=== PATIENT | female | born 1940 | race Two or more races ===

== ENCOUNTER 2017-09-14 06:26 | Day surgery (SDC) | payer MEDICARE, OTHER ==
[2017-09-14] MEDS ORDERED: PROPOFOL 200 MG/20 ML BOTTLE IV ONE (06:27)
[2017-09-14] MEDS ORDERED: ONDANSETRON 4 MG/2 ML VIAL IV ONE (06:27)
[2017-09-14] MEDS ORDERED: CEFAZOLIN 1 G VIAL MC ONE (06:27)
[2017-09-14] MEDS ORDERED: IV LACTATED RINGERS SOLUTION 1,000 ML BAG IV ONE (06:27)
[2017-09-14] MEDS ORDERED: CEFAZOLIN 50 ML IV ONE ×2 (06:58→11:53)
[2017-09-14] MEDS ORDERED: POLYMYXIN B SULFATE 500,000 UNITS, BACITRACIN 50,000 UNITS, NORMAL SALINE 20 ML MC ONE ×3 (08:00)
[2017-09-14] MEDS ORDERED: BUPIVACAINE PF 0.5% 30 ML VIAL ONE (08:17)
[2017-09-14] MEDS ORDERED: LIDOCAINE HCL 1% 20 ML VIAL ONE (08:17)
[2017-09-14] MEDS ORDERED: FENTANYL CITRATE 100 MCG/2 ML AMPUL ONE (08:48)
[2017-09-14] MEDS ORDERED: MIDAZOLAM HCL 2 MG/2 ML VIAL ONE (08:48)
[2017-09-14] MEDS ORDERED: HYDROCODONE/APAP 5-325MG TABLET ONE (12:53)
== END 2017-09-14 13:05 | disposition home or self-care (01) ==
LOC: DS 06:26
PROVIDERS: ATTEND Podiatrist Foot & Ankle Surgery
DX: M21.612 Bunion of left foot (principal); M20.12 Hallux valgus (acquired), left foot; M81.0 Age-related osteoporosis without current pathological fracture; M17.0 Bilateral primary osteoarthritis of knee; K21.9 Gastro-esophageal reflux disease without esophagitis; I11.9 Hypertensive heart disease without heart failure; E78.5 Hyperlipidemia, unspecified; M48.061 Spinal stenosis, lumbar region without neurogenic claudication; Z98.890 Other specified postprocedural states
CPT/HCPCS: 73630; A4649; A4663; J0690; J2250; J2405; J3010; J3490; J7120